=== PATIENT | female | born 1965 | race Caucasian/White ===

== ENCOUNTER → 2017-11-20 | Outpatient (CLI) | payer OTHER ==
[~2017-11-20] MED LIST: ACET300T3 PO; ALBUAER2 INH; IBUP-1050 PO; IBUP600T44 PO
--- NOTE | 2017-11-23 07:43 | MAMMOGRAPHY REPORT ---
BILATERAL DIGITAL SCREENING MAMMOGRAM TOMOSYNTHESIS WITH CAD: 11/20/2017 CLINICAL HISTORY: Routine screening. TECHNIQUE: Breast tomosynthesis in addition to standard 2D mammography was performed. Current study was also evaluated with a Computer Aided Detection (CAD) system. COMPARISON: Comparison is made to exam dated: 01/21/2007. BREAST COMPOSITION: The tissue of both breasts is heterogeneously dense, which may obscure small mas ses. FINDINGS: There are possible grouped calcifications within the left upper outer quadrant, and possibl e grouped calcifications in the right posterior breast centrally, for which spot magnification views are recommended for further evaluation. The remainder of both breasts are stable compared to prior exams, without suspicious masses, calcific ations, or areas of architectural distortion noted. IMPRESSION: ACR BI-RADS CATEGORY 0: INCOMPLETE EVALUATION: NEED ADDITIONAL IMAGING EVALUATION Bilateral calcifications, for which additional imaging evaluation is recommended. The patient will b e called to schedule an appointment. Approximately 10% of breast cancers are not detected with mammography. A negative mammographic report should not delay biopsy if a clinically suggestive mass is present. Sandra Sotomayor M.D. ah/:11/20/2017 15:55:01 Stencil Machine Operator: Kamari KRAUSE(Ambar)(M), [facility] letter sent: Addl Imaging 0 BI-RADS Code: ACR BI-RADS Category 0: Incomplete Evaluation: Need Additional Imaging Evaluation
== END | disposition home or self-care (01) ==
LOC: C.MAMM 08:29
PROVIDERS: ATTEND Obstetrics & Gynecology
DX: Z12.31 Encounter for screening mammogram for malignant neoplasm of breast (principal); R92.1 Mammographic calcification found on diagnostic imaging of breast

== ENCOUNTER 2021-05-02 21:08 | Observation (INO) ==
--- NOTE | 2021-05-03 00:32 | Emergency Department Note ---
History of Present Illness General Chief complaint: Abdominal Pain Stated complaint: ABDOMINAL PAIN UNDER RIBS, CHILLS, DIZZY Time Seen by Provider: 05/03/21 00:17 Source: patient Mode of arrival: ambulatory Limitations: no limitations History of Present Illness Provider complaint: abdominal pain Onset (ago): hour(s) Maximum Pain Intensity: 7 Relieved By: + none Exacerbated By: + eating Associated symptoms: + nausea/vomiting; no fever/chills Treatments prior to arrival: none This is a 55-year-old female presents emergency department with complaints of abdominal pain. Patient states last evening she developed substernal chest pain that she describes as a burning and ache, however this resolved spontaneously and she was able to go to sleep. She states she woke up this morning feeling in her usual state of health, ate breakfast without difficulty and went to work. She states she ate snacks throughout the day and then came home at 230 and had a heavier meal before going to her second job. She states about an hour into being at her job she developed upper abdominal pain central and bilaterally with mild radiation into the flank. She developed some slight nausea and eventually did vomit. Patient states this all began around 4 PM and lasted until 10:30 PM while she was seated in the waiting room. She states she did have an episode of diarrhea here. No blood in the emesis or stools. No recent change in medications or diet. Patient states she is active. She denies fevers, chills, URI symptoms. By the time of my evaluation when patient was placed on the room after waiting in the waiting room for several hours, patient symptoms had resolved. Pt seen during a time of high acuity and national emergency pandemic while wearing PPE. Home Medications Medication Instructions Recorded Confirmed Type acetaminophen 500 mg tablet 500 - 1,000 mg PO Q6H PRN 05/28/18 05/03/21 History (Acetaminophen Extra Strength) albuterol sulfate 90 mcg/actuation 2 puff INHALATION Q6H PRN 05/28/18 05/03/21 History aerosol inhaler (Ventolin HFA) levothyroxine 50 mcg tablet 50 mcg PO DAILY 05/03/21 05/03/21 History Allergies Allergy/AdvReac Type Severity Reaction Status Date / Time Sulfa (Sulfonamide Allergy Severe Anaphylaxis Verified 05/03/21 00:34 Antibiotics) amoxicillin Allergy Unknown "CAN'T Verified 05/03/21 00:34 REMEMBER" oxycodone AdvReac Intermediate NAUSEA,DIZZINESS,EYES Verified 05/03/21 00:34 TWITCHING corn AdvReac Mild DIARRHEA Verified 05/03/21 00:34 lactose AdvReac Mild Gastrointestinal Verified 05/03/21 00:34 Upset Past Med/Surg History Medical History (Updated 05/03/21 @ 08:43 by Salazar Brooks MD) Asthma exercise induced---inhaler prn 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 Hyperlipidemia diet controlled Hypothyroidism IBS (irritable bowel syndrome) Nausea and vomiting after administration of anesthetic agent Obesity Osteoarthritis Surgical History History of detached retina repair left History of lumbar discectomy x3 History of nasal septoplasty History of oral surgery hemangioma removed tongue History of partial hysterectomy History of tooth extraction wisdom teeth Status post cervical spinal fusion x2 Family History Mother Family history of reaction to anesthesia nausea/vomiting Brother Family history of diabetes mellitus twin Family hx colonic polyps 2 Family/Other Family history of diabetes mellitus maternal uncle, maternal cousin Social History Smoking Status: Never smoker Second Hand Exposure: No; Hx Alcohol Use: No Hx Substance Use: No Preferred Language: Occitan Communication Ability: Effective Rope Rider Required: No Beliefs That Will Affect Care: None Current Living Situation: Alone Feels Safe at Home: Yes Assistive Devices: Glasses Review of Systems A total of 10 systems reviewed and were otherwise negative All systems reviewed & are unremarkable except as noted in HPI & below Physical Exam Vital Signs Vital Signs - 24 hr 05/02/21 21:18 05/03/21 07:03 05/03/21 08:57 Temperature 36.2 C L Temperature Source Temporal Artery Scan Pulse Rate 83 Pulse Rate [Finger] 62 66 Pulse Rhythm Regular Pulse Strength Normal Respiratory Rate 18 16 17 Respiratory Effort / Characteristics Non-Labored Spontaneous Respiratory Depth Normal Respiratory Pattern Regular Blood Pressure 159/91 H Blood Pressure [Right Arm] 125/68 141/82 H Blood Pressure Mean 113 Blood Pressure Mean [Right Arm] 87 101 Blood Pressure Position Sitting Pulse Oximetry 95 98 99 Oxygen Delivery Method Room Air Room Air Room Air Sepsis Recent Fever Within 48 Hours No Sepsis New/Unexplained Change in Mental Status N/A Sepsis Action Taken by Nursing No Action Required GENERAL: alert, well appearing, well nourished, no distress, non-toxic EYE EXAM: normal conjunctiva, PERRL and EOM's grossly intact OROPHARYNX: no exudate, no erythema, lips, buccal mucosa, and tongue normal and mucous membranes are moist NECK: supple, no nuchal rigidity, no adenopathy, non-tender LUNGS: Clear to auscultation. Normal chest wall mechanics, no w/r/r HEART: no murmurs, S1 normal and S2 normal ABDOMEN: abdomen soft, non-tender, normo-active bowel sounds, no masses, no rebound or guarding. BACK: Back is symmetrical on inspection and there is no deformity, no midline tenderness, no CVA tenderness. SKIN: no rashes and no bruising UPPER EXTREMITIES: upper extremities are grossly normal. FROM, nml pulses b/l. LOWER EXTREMITIES: No pitting edema. FROM, nml pulses b/l. NEURO EXAM: Normal sensorium, cranial nerves II-XII grossly intact, normal speech, no gross weakness of arms, no gross weakness of legs. Gross sensation intact. Course Course 0325: Patient updated on CT findings. Will add ultrasound. 0526: Patient updated ultrasound results. Will contact general surgery. 0540: General surgery were admit. Covid swab added. Administered Medications Sodium Chloride (Nss 1000ml) 1,000 mls @ 125 mls/hr IV .Q8H JENNIFER Stop: 06/02/21 05:44 Last Admin: 05/03/21 06:08 Dose: 125 mls/hr Documented by: [id number] Discontinued Medications Ciprofloxacin (Cipro / D5w) 400 mg in 200 mls @ 100 mls/hr IV NOW STA; Protocol Stop: 05/03/21 07:51 Last Infusion: 05/03/21 08:56 Dose: 0 mls/hr Documented by: [id number] Admin: 05/03/21 07:04 Dose: 100 mls/hr Documented by: [id number] Metronidazole (Flagyl) 500 mg in 100 mls @ 100 mls/hr IV NOW STA Stop: 05/03/21 06:51 Last Infusion: 05/03/21 07:07 Dose: 0 mls/hr Documented by: [id number] Admin: 05/03/21 06:03 Dose: 100 mls/hr Documented by: [id number] Ioversol (Optiray 320 100ml) 100 ml IV ONCE ONE Stop: 05/03/21 02:20 Last Admin: 05/03/21 02:20 Dose: 93 ml Documented by: [id number] Medical Decision Making Differential Diagnosis Differential diagnoses includes but is not limited to gastritis, peptic ulcer disease, GERD, gallbladder disease, pancreatitis, small bowel obstruction, acute coronary syndrome, pericarditis, ischemic bowel, irritable bowel disease, irritable bowel syndrome, appendicitis, diverticulitis, malignancy, hernia, urinary tract infection, torsion, [/ectopic (if female)], perforation, trauma, infectious. Medical Records Attestation: I reviewed the patient's medical records. Home Medications Current Medication List: was personally reviewed by me Laboratory Data Attestation: I reviewed the patient's lab results. Result diagrams: 05/02/21 01:05 05/03/21 01:05 Lab Results 05/02/21 05/03/21 05/03/21 Range/Units 01:05 01:05 01:25 WBC 7.99 (4.8-10.8) K/uL RBC 4.60 (4.2-5.4) M/uL Hgb 13.8 (12.0-16.0) g/dL Hct 38.9 (37-47) % MCV 84.6 (80-100) fL MCH 30.0 (25-34) pg MCHC 35.5 (32-36) g/dL RDW Std Deviation 37.6 (36.4-46.3) fL RDW Coeff of Kaye 12.3 (11.5-14.5) % Plt Count 289 (130-400) K/uL MPV 10.4 (7.4-10.4) fL Immature Gran % (Auto) 0.1 % Neut % (Auto) 76.2 % Lymph % (Auto) 16.0 % [place] % (Auto) 6.8 % Eos % (Auto) 0.8 % Baso % (Auto) 0.1 % Neut # (Auto) 6.09 (1.4-6.5) K/uL Lymph # (Auto) 1.28 (1.2-3.4) K/uL [place] # (Auto) 0.54 (0.11-0.59) K/uL Eos # (Auto) 0.06 (0-0.5) K/uL Baso # (Auto) 0.01 (0-0.2) K/uL Immature Gran # (Auto) 0.01 (0.00-0.02) K/uL Sodium 136 (136-145) mmol/L Potassium 3.9 (3.5-5.1) mmol/L Chloride 105 (98-107) mmol/L Carbon Dioxide 26 (21-32) mmol/L Anion Gap 5.0 (3-11) BUN 12 (7-18) mg/dl Creatinine 0.69 (0.6-1.2) mg/dl Est Cr Clr Drug Dosing 107.1 ml/min Est GFR ( Amer) 114.4 ml/min Est GFR (Non-Af Amer) 98.7 ml/min BUN/Creatinine Ratio 17.0 (10-20) Glucose 126 H (70-99) mg/dl Calcium 9.5 (8.5-10.1) mg/dl Total Bilirubin 0.7 (0.2-1) mg/dl AST 32 (15-37) U/L ALT 61 (12-78) U/L Alkaline Phosphatase 84 (45-117) U/L Total Protein 7.9 (6.4-8.2) gm/dl Albumin 4.3 (3.4-5.0) gm/dl Globulin 3.6 (2.5-4.0) gm/dl Albumin/Globulin Ratio 1.2 (0.9-2) Lipase 97 (73-393) U/L TSH 0.183 L (0.300-4.500) uIu/ml Free T4 1.30 (0.8-1.6) ng/dl Urine Color Yellow Urine Appearance Clear (Clear) Urine pH 6.5 (4.5-7.5) Ur Specific [place] 1.009 (1.000-1.030) Urine Protein Negative (Negative) Urine Glucose (UA) Negative (Negative) Urine Ketones Negative (Negative) Urine Blood Negative (Negative) Urine Nitrite Negative (Negative) Urine Bilirubin Negative (Negative) Urine Urobilinogen Negative (Negative) Ur Leukocyte Esterase Negative (Negative) COVID-19 Eval Order SARS-CoV-2 (PCR) (Negative) 10/22/21 10/22/21 Range/Units 05:50 05:50 WBC (4.8-10.8) K/uL RBC (4.2-5.4) M/uL Hgb (12.0-16.0) g/dL Hct (37-47) % MCV (80-100) fL MCH (25-34) pg MCHC (32-36) g/dL RDW Std Deviation (36.4-46.3) fL RDW Coeff of Kaye (11.5-14.5) % Plt Count (130-400) K/uL MPV (7.4-10.4) fL Immature Gran % (Auto) % Neut % (Auto) % Lymph % (Auto) % [place] % (Auto) % Eos % (Auto) % Baso % (Auto) % Neut # (Auto) (1.4-6.5) K/uL Lymph # (Auto) (1.2-3.4) K/uL [place] # (Auto) (0.11-0.59) K/uL Eos # (Auto) (0-0.5) K/uL Baso # (Auto) (0-0.2) K/uL Immature Gran # (Auto) (0.00-0.02) K/uL Sodium (136-145) mmol/L Potassium (3.5-5.1) mmol/L Chloride (98-107) mmol/L Carbon Dioxide (21-32) mmol/L Anion Gap (3-11) BUN (7-18) mg/dl Creatinine (0.6-1.2) mg/dl Est Cr Clr Drug Dosing ml/min Est GFR ( Amer) ml/min Est GFR (Non-Af Amer) ml/min BUN/Creatinine Ratio (10-20) Glucose (70-99) mg/dl Calcium (8.5-10.1) mg/dl Total Bilirubin (0.2-1) mg/dl AST (15-37) U/L ALT (12-78) U/L Alkaline Phosphatase (45-117) U/L Total Protein (6.4-8.2) gm/dl Albumin (3.4-5.0) gm/dl Globulin (2.5-4.0) gm/dl Albumin/Globulin Ratio (0.9-2) Lipase (73-393) U/L TSH (0.300-4.500) uIu/ml Free T4 (0.8-1.6) ng/dl Urine Color Urine Appearance (Clear) Urine pH (4.5-7.5) Ur Specific [place] (1.000-1.030) Urine Protein (Negative) Urine Glucose (UA) (Negative) Urine Ketones (Negative) Urine Blood (Negative) Urine Nitrite (Negative) Urine Bilirubin (Negative) Urine Urobilinogen (Negative) Ur Leukocyte Esterase (Negative) COVID-19 Eval Order Covid19 at [facility] SARS-CoV-2 (PCR) NEGATIVE (Negative) Imaging Data Radiologist's Impression: Abdomen/Pelvis CT 05/03/21 00:56 CT OF THE ABDOMEN AND PELVIS WITH CONTRAST CLINICAL HISTORY: Abdominal pain. COMPARISON STUDY: None. TECHNIQUE: Following IV administration of 93 mL of Optiray, axial images of the abdomen and pelvis were obtained from the lung bases to the proximal femurs. Images were reviewed in the axial, sagittal, and coronal planes. IV contrast was administered without complication. Automated exposure control was utilized for the study. A dose lowering technique was utilized adhering to the principles of ALARA. CT DOSE: 553.78 mGy.cm FINDINGS: Note is made of a 6 mm solid noncalcified right lower lobe pulmonary nodule on image 16 of 466. No pneumatosis, free air or portal venous gas is present. No hepatic lesions are present. Hepatic steatosis. Note is made of gallbladder wall thickening. Layering material within the gallbladder is noted. These likely reflect gallstones. The spleen, adrenal glands, kidneys and pancreas are unremarkable. There is no biliary or pancreatic ductal dilatation. No evidence for a bowel obstruction. There is no ascites. No lymphadenopathy is present. Major vasculature is patent. No acute fracture or suspicious lesion is identified within the visualized skeletal structures. The caliber and wall thickness of small and large bowel are normal. The appendix is normal. IMPRESSION: 1. Cholelithiasis and gallbladder wall thickening. These findings may reflect acute cholecystitis. 2. Hepatic steatosis. 3. 6 mm right lower lobe nodule. Correlation with prior imaging studies, if available, is recommended. In the absence of prior studies, a follow-up chest CT in 6 months to ensure stability is recommended. ACT 112: Negative or not required by law. Electronically signed by: Herrera Guallpa M.D. 05/03/2021 6:34 AM Abdomen Ultrasound 05/03/21 03:38 ABDOMINAL ULTRASOUND, RIGHT UPPER QUADRANT HISTORY: Abdominal pain and vomiting. Abnormal gallbladder on CT. COMPARISON: CT of the abdomen and pelvis performed earlier today. FINDINGS: Hepatic echogenicity is increased consistent with hepatic steatosis. No hepatic lesions are identified. Fatty sparing within the gallbladder fossa is noted. Numerous gallstones within the gallbladder noted. There is gallbladder wall thickening. The wall measures 5 mm in thickness. Gallbladder wall edema is noted. Positive sonographic Baugh sign was elicited. There is no biliary ductal dilatation. The common bile measures 5 mm in caliber. Pancreatic body is normal. Head and tail are partially obscured. There is no right hydronephrosis. IMPRESSION: 1. Cholelithiasis, gallbladder wall thickening and positive sonographic Baugh sign. These findings suggest acute cholecystitis. 2. No biliary ductal dilatation. 3. Hepatic steatosis. ACT 112: Negative or not required by law. Electronically signed by: Herrera Guallpa M.D. 05/03/2021 6:52 AM Chest X-Ray 05/03/21 05:52 SINGLE VIEW CHEST CLINICAL HISTORY: Preoperative examination. Acute cholecystitis. FINDINGS: 2 AP, portable, upright chest radiographs are obtained. No prior studies are available for comparison at the time of dictation. The cardiomediastinal silhouette is unremarkable. The lungs and pleural spaces are clear. No pneumothorax is seen. The bony thorax is grossly intact. Fusion hardware is noted in the lower cervical spine. IMPRESSION: No active disease in the chest. ACT 112: Negative or not required by law. Electronically signed by: Yimi Wills M.D. 05/03/2021 9:[address] abdomen and pelvis with contrast: Apparent gallbladder wall thickening with cholelithiasis. Consider right upper quadrant ultrasound for further evaluation. Hepatic steatosis. 6 mm solid right lower lobe nodule. Fleischner Society guidelines for low risk patients recommend follow-up chest CT at 6 to 12 months. If unchanged consider an additional follow-up CT at 18 to 24 months. For high risk patients (smoking history or other known risk factors) initial follow-up chest CT at 6 to 12 months and if unchanged, 18 to 24 months. Additionally, given patient's reported oncologic history, follow-up imaging could be performed at the time interval recommended with pertinent oncologic guidelines. Normal appendix. No free air or free fluid. No hydronephrosis. Radiologist: Venkatesh Sutherland MD Ultrasound right upper quadrant: Comparison to CT abdomen pelvis from May 03, 2021. There is fatty infiltration of the liver. No focal liver lesion is seen for the liver is within normal limits in size measuring 15.7 cm. The portal vein is patent with normal direction of flow. There are multiple shadowing gallstones within a distended gallbladder. There is gallbladder wall thickening measuring 3 to 5 mm and a small amount of pericholecystic fluid suggesting acute cholecystitis. The common bile duct is nondilated measuring 3 to 4 mm. Radiologist: Feng Denson MD ECG Data Attestation: I personally reviewed and interpreted this ECG as follows: Indication: + abdominal pain Rate (beats per minute): 63 Rhythm: + normal sinus ECG Intervals/blocks: + Normal QRS and + Normal QT ECG [place]: + Normal ECG ST segments: + Normal ST segments MDM Narrative This is a 55-year-old female who presents due to concern for abdominal pain that lasted approximately 6 to 7 hours by the time she presented here and symptoms began to resolve. Patient did have vomiting, no fevers. Labs drawn and sent and were reassuring. After significant time at bedside discussing with the patient her past medical history and family history as well as the evolution and location of her symptoms, we opted to start with a CAT scan of the abdomen and pelvis. This did reveal concern for possible biliary disease, and so a right upper quadrant ultrasound was added. Ultrasound findings highly suggestive of acute cholecystitis. In light of this despite reassuring labs and patient being afebrile, general surgery was contacted. They will admit the patient with plan for cholecystectomy later today. Patient kept aware of all results and was in agreement with plan. No evidence of choledocholithiasis or ascending cholangitis. No evidence for pancreatitis. An order was placed for continuous cardiac monitoring. The monitor shows a rate of _70_ with _normal sinus__ rhythm. Impression & Plan Abdominal pain, Acute cholecystitis Discharge Plan Visit Data Chief Complaint: Abdominal Pain Stated Complaint: ABDOMINAL PAIN UNDER RIBS, CHILLS, DIZZY ED Provider: Shelia Zhao Discharge Problem: Abdominal pain, Acute cholecystitis Forms Stand Alone Forms: [employer] Prescriptions Prescriptions: No Action albuterol sulfate [Ventolin HFA] 90 mcg/actuation Hfa Aerosol Inhaler 2 puff INHALATION Q6H PRN (Reason: Shortness Of Breath) RF: 0 acetaminophen [Acetaminophen Extra Strength] 500 mg Tablet 500 - 1,000 mg PO Q6H PRN (Reason: Pain) RF: 0 levothyroxine 50 mcg tablet 50 mcg PO DAILY RF: 0 Referrals Referrals: Rabia Mai CRNP [Primary Care Provider] - Discharge Problem: Abdominal pain Qualifiers: Abdominal location: upper abdomen, unspecified Qualified Code(s): R10.10 - Upper abdominal pain, unspecified
[2021-05-03 01:24] LABS: Basophils # (auto) 0.01 K/uL (0-0.2); Basophils % (auto) 0.1 %; Eosinophils # (auto) 0.06 K/uL (0-0.5); Eosinophils % (auto) 0.8 %; Hematocrit (blood only) 38.9 % (37-47); Hemoglobin 13.8 g/dL (12.0-16.0); Immature Granulocytes # (auto) 0.01 K/uL (0.00-0.02); Immature Granulocytes % (auto) 0.1 %; Lymphocytes # (auto) 1.28 K/uL (1.2-3.4); Mean Corpuscular Hgb Conc 35.5 g/dL (32-36); Mean Corpuscular Volume 84.6 fL (80-100); Mean Platelet Volume 10.4 fL (7.4-10.4); Monocytes # (auto) 0.54 K/uL (0.11-0.59); Monocytes % (auto) 6.8 %; Neutrophils # (auto) 6.09 K/uL (1.4-6.5); Neutrophils % (auto) 76.2 %; Platelet Count 289 K/uL (130-400); RDW Coefficient of Variation 12.3 % (11.5-14.5); RDW Standard Deviation 37.6 fL (36.4-46.3); White Blood Count 7.99 K/uL (4.8-10.8)
[2021-05-03 01:42] LABS: Appearance Urine Clear (Clear); Bilirubin Urine Negative (Negative); Blood Urine Negative (Negative); Color Urine Yellow; Glucose Urine UA Negative (Negative); Ketones Urine Negative (Negative); Leukocyte Esterase Urine Negative (Negative); Nitrite Urine Negative (Negative); Protein Urine Negative (Negative); Specific Gravity Urine 1.009 (1.000-1.030); Urobilinogen Urine Negative (Negative); pH Urine 6.5 (4.5-7.5)
[2021-05-03 01:45] LABS: Albumin Level 4.3 gm/dl (3.4-5.0); Calcium 9.5 mg/dl (8.5-10.1); Creatinine Clr Calc Pharmacy 107.1 ml/min; Est GFR (African American) 114.4 ml/min; Est GFR (Non-African American) 98.7 ml/min; Potassium 3.9 mmol/L (3.5-5.1)
[2021-05-03 01:56] LABS: Albumin Globulin Ratio 1.2 (0.9-2); Bilirubin,Total 0.7 mg/dl (0.2-1); Globulin 3.6 gm/dl (2.5-4.0); Thyroid Stimulating Hormone 0.183 uIu/ml (0.300-4.500); Total Protein 7.9 gm/dl (6.4-8.2)
[2021-05-03 02:08] LABS: T4 Free Thyroxine 1.3 ng/dl (0.8-1.6)
[2021-05-03] MEDS ORDERED: OPTIRAY 320 100ml IV ONE (02:19)
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
[2021-05-03] MEDS ORDERED: metroNIDAZOLE 500 MG/100 ML BAG IV STA (05:52)
[2021-05-03] MEDS ORDERED: CIPROFLOXACIN / D5W 400 MG/200 ML BAG IV STA (05:52)
[2021-05-03] MEDS: SODIUM CHLORIDE 0.9% 1000ML 1,000 ML IV SCH ×2 (06:08→16:42)
--- NOTE | 2021-05-03 06:35 | CT Scan Report ---
CT OF THE ABDOMEN AND PELVIS WITH CONTRAST CLINICAL HISTORY: Abdominal pain. COMPARISON STUDY: None. TECHNIQUE: Following IV administration of 93 mL of Optiray, axial images of the abdomen and pelvis we re obtained from the lung bases to the proximal femurs. Images were reviewed in the axial, sagittal, and coronal planes. IV contrast was administered without complication. Automated exposure control wa s utilized for the study. A dose lowering technique was utilized adhering to the principles of ALARA . CT DOSE: 553.78 mGy.cm FINDINGS: Note is made of a 6 mm solid noncalcified right lower lobe pulmonary nodule on image 16 of 466. No pneumatosis, free air or portal venous gas is present. No hepatic lesions are present. Hepati c steatosis. Note is made of gallbladder wall thickening. Layering material within the gallbladder is noted. These likely reflect gallstones. The spleen, adrenal glands, kidneys and pancreas are unremar kable. There is no biliary or pancreatic ductal dilatation. No evidence for a bowel obstruction. Ther e is no ascites. No lymphadenopathy is present. Major vasculature is patent. No acute fracture or elma picious lesion is identified within the visualized skeletal structures. The caliber and wall thicknes s of small and large bowel are normal. The appendix is normal. IMPRESSION: 1. Cholelithiasis and gallbladder wall thickening. These findings may reflect acute cholecystitis. 2. Hepatic steatosis. 3. 6 mm right lower lobe nodule. Correlation with prior imaging studies, if available, is recommended . In the absence of prior studies, a follow-up chest CT in 6 months to ensure stability is recommende d. ACT 112: Negative or not required by law. Electronically signed by: Herrera Guallpa M.D. 05/03/2021 6:34 AM
--- NOTE | 2021-05-03 06:53 | Ultrasound Report ---
ABDOMINAL ULTRASOUND, RIGHT UPPER QUADRANT HISTORY: Abdominal pain and vomiting. Abnormal gallbladder on CT. COMPARISON: CT of the abdomen and pelvis performed earlier today. FINDINGS: Hepatic echogenicity is increased consistent with hepatic steatosis. No hepatic lesions are identified. Fatty sparing within the gallbladder fossa is noted. Numerous gallstones within the gall bladder noted. There is gallbladder wall thickening. The wall measures 5 mm in thickness. Gallbladder wall edema is noted. Positive sonographic Baugh sign was elicited. There is no biliary ductal dilat ation. The common bile measures 5 mm in caliber. Pancreatic body is normal. Head and tail are partial ly obscured. There is no right hydronephrosis. IMPRESSION: 1. Cholelithiasis, gallbladder wall thickening and positive sonographic Baugh sign. These findings s uggest acute cholecystitis. 2. No biliary ductal dilatation. 3. Hepatic steatosis. ACT 112: Negative or not required by law. Electronically signed by: Herrera Guallpa M.D. 05/03/2021 6:52 AM
--- NOTE | 2021-05-03 09:01 | XRay Report ---
SINGLE VIEW CHEST CLINICAL HISTORY: Preoperative examination. Acute cholecystitis. FINDINGS: 2 AP, portable, upright chest radiographs are obtained. No prior studies are available for comparison at the time of dictation. The cardiomediastinal silhouette is unremarkable. The lungs and pleural spaces are clear. No pneumothorax is seen. The bony thorax is grossly intact. Fusion hardwar e is noted in the lower cervical spine. IMPRESSION: No active disease in the chest. ACT 112: Negative or not required by law. Electronically signed by: Yimi Wills M.D. 05/03/2021 9:00 AM
[2021-05-03] MEDS ORDERED: DEXTROSE 50% 50 ML SYRINGE IV PRN (10:37)
[2021-05-03] MEDS ORDERED: GLUCAGON FOR INJ 1 MG VIAL SQ PRN (10:37)
[2021-05-03] MEDS ORDERED: GLUCOSE 40% GEL 15 GM TUBE PO PRN (10:37)
[2021-05-03] MEDS ORDERED: GLUCOSE 10 TABS/TUBE PO PRN (10:37)
[2021-05-03] MEDS ORDERED: CARBOHYDRATES FOR HYPOGLYCEMIA PO PRN (10:37)
--- NOTE | 2021-05-03 10:43 | Hospitalist Consultation ---
Date of Consultation May 03, 2021 Assessment & Plan (1) Acute cholecystitis: With findings of acute cholecystitis on right upper quadrant ultrasound CT abdomen/pelvis went for laparoscopic cholecystectomy today Received 1 dose of Cipro and Flagyl Continue IV fluids now faina reg diet after surgery Surgical management as per surgery- stable for dc to home ibuprofen and tylenol prn and avoid opioids nad trmadaol as cause nausea (2) Hypoglycemia: glucose check normal after surgery, no hypoglycemia TSH a little bit low but free T4 normal Does take adrenal complex as an outpatient which tends to be natural adrenal gland tissue-probably has created some adrenal insufficiency no need for stress steroids Currently blood pressures are normal (3) Obesity: BMI 30.9 Needs weight loss as an outpatient (4) Hypothyroidism: TSH mildly low, free T4 normal Continue home levothyroxine (5) IBS (irritable bowel syndrome): No acute inpatient issues (6) Asthma: No acute issues, pulse ox is 1 her percent on room air (7) Hyperlipidemia: Is diet controlled as an outpatient Dispo-medically stable for dc to home History of Present Illness Reason for Consultation: Medical management, h/o hypoglycemia Requesting Physician: Dr. Tony Attending Physician: Felice Tony MD, [facility] History of Present Illness This patient is a 55-year-old female with a history of hypothyroidism, exercise- induced asthma, hyperlipidemia that is diet controlled, IBS, and osteoarthritis who presents to the ER with right upper quadrant pain that was acute in nature. She was found to have acute cholecystitis and has been taken to the operating room today for an urgent laparoscopic cholecystectomy. She received IV Cipro and Flagyl and IV fluids in the ER. I was consulted for medical management as the patient complains of a history of hypoglycemia in the past. I do see that she takes "adrenal complex" as an outpatient and perhaps has some degree of adrenal insufficiency. Her blood glucose on arrival was 126, but laboratory work-up was fairly unremarkable otherwise. I saw her post-op and she was doing fairly well. She had a lot of nausea after having tramadol which was then resolved with promethazine. Pain is down to a 1/10 now and she ambulated, ate regular dinner and is going to be discharged to home this evening. Allergies Allergy/AdvReac Type Severity Reaction Status Date / Time Sulfa (Sulfonamide Allergy Severe Anaphylaxis Verified 05/03/21 00:34 Antibiotics) amoxicillin Allergy Unknown "CAN'T Verified 05/03/21 00:34 REMEMBER" oxycodone AdvReac Intermediate NAUSEA,DIZZINESS,EYES Verified 05/03/21 00:34 TWITCHING tramadol AdvReac Intermediate Nausea Verified 05/03/21 18:39 corn AdvReac Mild DIARRHEA Verified 05/03/21 00:34 lactose AdvReac Mild Gastrointestinal Verified 05/03/21 00:34 Upset Home Medications Medication Instructions Recorded Confirmed Type acetaminophen 500 mg tablet 500 - 1,000 mg PO Q6H PRN 05/28/18 05/03/21 History (Acetaminophen Extra Strength) albuterol sulfate 90 mcg/actuation 2 puff INHALATION Q6H PRN 05/28/18 05/03/21 History aerosol inhaler (Ventolin HFA) levothyroxine 50 mcg tablet 50 mcg PO DAILY 05/03/21 05/03/21 History ondansetron HCl 4 mg tablet 4 mg PO Q6H PRN #10 tab 05/03/21 Rx (Zofran) tramadol 50 mg tablet 50 - 100 mg PO Q6H #30 tab 05/03/21 Rx Patient History Medical History Asthma exercise induced---inhaler prn 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 Hyperlipidemia diet controlled Hypothyroidism IBS (irritable bowel syndrome) Nausea and vomiting after administration of anesthetic agent Obesity Osteoarthritis Surgical History History of detached retina repair left History of lumbar discectomy x3 History of nasal septoplasty History of oral surgery hemangioma removed tongue History of partial hysterectomy History of tooth extraction wisdom teeth Status post cervical spinal fusion x2 Family History Mother Family history of reaction to anesthesia nausea/vomiting Brother Family history of diabetes mellitus twin Family hx colonic polyps 2 Family/Other Family history of diabetes mellitus maternal uncle, maternal cousin Social History Smoking Status: Never smoker Second Hand Exposure: No; Hx Alcohol Use: Yes Alcohol type: beer Hx Substance Use: No Preferred Language: Algerian Communication Ability: Effective 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 Beliefs That Will Affect Care: None Current Living Situation: Alone Feels Safe at Home: Yes Safety Concerns: Feels Safe At This Time Assistive Devices: None Review of Systems Review of Systems: All systems reviewed & are unremarkable except as noted in HPI & below Physical Exam Constitutional: WD/WN, vitals as above Eyes: + anicteric sclerae Neck: trachea midline, no thyromegaly Respiratory: normal respiratory effort, lungs clear to auscultation Cardiovascular: RRR, no murmur, no edema Chest (Breasts): Chest: normal inspection of chest Gastrointestinal (Abdomen): Inspection/Auscultation: + abdomen abnormal to inspection (multiple lap incisions with dermabond, no tenderness or erythema) Musculoskeletal: Extremities: extremities normal to inspection; no cyanosis and no clubbing Skin: no rashes, warm and dry Neurologic: moves all extremities and awake; no focal motor deficits Psychiatric: A+Ox3, euthymic affect Lymphatic: no lymphedema Results & Data Results & Data ([facility]) Vital Signs (Past 12 Hours) Vital Signs Pulse Resp BP Pulse Ox 05/03/21 10:17 68 17 135/74 100 05/03/21 08:57 66 17 141/82 H 99 05/03/21 07:03 62 16 125/68 98 Laboratory Results 05/03/21 05/03/21 05/03/21 Range/Units 05:50 05:50 01:25 WBC (4.8-10.8) K/uL RBC (4.2-5.4) M/uL Hgb (12.0-16.0) g/dL Hct (37-47) % MCV (80-100) fL MCH (25-34) pg MCHC (32-36) g/dL RDW Std Deviation (36.4-46.3) fL RDW Coeff of Kaye (11.5-14.5) % Plt Count (130-400) K/uL MPV (7.4-10.4) fL Immature Gran % (Auto) % Neut % (Auto) % Lymph % (Auto) % Mcdonald % (Auto) % Eos % (Auto) % Baso % (Auto) % Neut # (Auto) (1.4-6.5) K/uL Lymph # (Auto) (1.2-3.4) K/uL Mcdonald # (Auto) (0.11-0.59) K/uL Eos # (Auto) (0-0.5) K/uL Baso # (Auto) (0-0.2) K/uL Immature Gran # (Auto) (0.00-0.02) K/uL Sodium (136-145) mmol/L Potassium (3.5-5.1) mmol/L Chloride (98-107) mmol/L Carbon Dioxide (21-32) mmol/L Anion Gap (3-11) BUN (7-18) mg/dl Creatinine (0.6-1.2) mg/dl Est Cr Clr Drug Dosing ml/min Est GFR ( Amer) ml/min Est GFR (Non-Af Amer) ml/min BUN/Creatinine Ratio (10-20) Glucose (70-99) mg/dl Calcium (8.5-10.1) mg/dl Total Bilirubin (0.2-1) mg/dl AST (15-37) U/L ALT (12-78) U/L Alkaline Phosphatase (45-117) U/L Total Protein (6.4-8.2) gm/dl Albumin (3.4-5.0) gm/dl Globulin (2.5-4.0) gm/dl Albumin/Globulin Ratio (0.9-2) Lipase (73-393) U/L TSH (0.300-4.500) uIu/ml Free T4 (0.8-1.6) ng/dl Urine Color Yellow Urine Appearance Clear (Clear) Urine pH 6.5 (4.5-7.5) Ur Specific [place] 1.009 (1.000-1.030) Urine Protein Negative (Negative) Urine Glucose (UA) Negative (Negative) Urine Ketones Negative (Negative) Urine Blood Negative (Negative) Urine Nitrite Negative (Negative) Urine Bilirubin Negative (Negative) Urine Urobilinogen Negative (Negative) Ur Leukocyte Esterase Negative (Negative) COVID-19 Eval Order Covid19 at [facility] SARS-CoV-2 (PCR) NEGATIVE (Negative) 05/03/21 05/02/21 Range/Units 01:05 01:05 WBC 7.99 (4.8-10.8) K/uL RBC 4.60 (4.2-5.4) M/uL Hgb 13.8 (12.0-16.0) g/dL Hct 38.9 (37-47) % MCV 84.6 (80-100) fL MCH 30.0 (25-34) pg MCHC 35.5 (32-36) g/dL RDW Std Deviation 37.6 (36.4-46.3) fL RDW Coeff of Kaye 12.3 (11.5-14.5) % Plt Count 289 (130-400) K/uL MPV 10.4 (7.4-10.4) fL Immature Gran % (Auto) 0.1 % Neut % (Auto) 76.2 % Lymph % (Auto) 16.0 % Mcdonald % (Auto) 6.8 % Eos % (Auto) 0.8 % Baso % (Auto) 0.1 % Neut # (Auto) 6.09 (1.4-6.5) K/uL Lymph # (Auto) 1.28 (1.2-3.4) K/uL Mcdonald # (Auto) 0.54 (0.11-0.59) K/uL Eos # (Auto) 0.06 (0-0.5) K/uL Baso # (Auto) 0.01 (0-0.2) K/uL Immature Gran # (Auto) 0.01 (0.00-0.02) K/uL Sodium 136 (136-145) mmol/L Potassium 3.9 (3.5-5.1) mmol/L Chloride 105 (98-107) mmol/L Carbon Dioxide 26 (21-32) mmol/L Anion Gap 5.0 (3-11) BUN 12 (7-18) mg/dl Creatinine 0.69 (0.6-1.2) mg/dl Est Cr Clr Drug Dosing 107.1 ml/min Est GFR ( Amer) 114.4 ml/min Est GFR (Non-Af Amer) 98.7 ml/min BUN/Creatinine Ratio 17.0 (10-20) Glucose 126 H (70-99) mg/dl Calcium 9.5 (8.5-10.1) mg/dl Total Bilirubin 0.7 (0.2-1) mg/dl AST 32 (15-37) U/L ALT 61 (12-78) U/L Alkaline Phosphatase 84 (45-117) U/L Total Protein 7.9 (6.4-8.2) gm/dl Albumin 4.3 (3.4-5.0) gm/dl Globulin 3.6 (2.5-4.0) gm/dl Albumin/Globulin Ratio 1.2 (0.9-2) Lipase 97 (73-393) U/L TSH 0.183 L (0.300-4.500) uIu/ml Free T4 1.30 (0.8-1.6) ng/dl Urine Color Urine Appearance (Clear) Urine pH (4.5-7.5) Ur Specific [place] (1.000-1.030) Urine Protein (Negative) Urine Glucose (UA) (Negative) Urine Ketones (Negative) Urine Blood (Negative) Urine Nitrite (Negative) Urine Bilirubin (Negative) Urine Urobilinogen (Negative) Ur Leukocyte Esterase (Negative) COVID-19 Eval Order SARS-CoV-2 (PCR) (Negative) Diagnostic Findings Abdomen/Pelvis CT 05/03/21 00:56 CT OF THE ABDOMEN AND PELVIS WITH CONTRAST CLINICAL HISTORY: Abdominal pain. COMPARISON STUDY: None. TECHNIQUE: Following IV administration of 93 mL of Optiray, axial images of the abdomen and pelvis were obtained from the lung bases to the proximal femurs. Images were reviewed in the axial, sagittal, and coronal planes. IV contrast was administered without complication. Automated exposure control was utilized for the study. A dose lowering technique was utilized adhering to the principles of ALARA. CT DOSE: 553.78 mGy.cm FINDINGS: Note is made of a 6 mm solid noncalcified right lower lobe pulmonary nodule on image 16 of 466. No pneumatosis, free air or portal venous gas is present. No hepatic lesions are present. Hepatic steatosis. Note is made of gallbladder wall thickening. Layering material within the gallbladder is noted. These likely reflect gallstones. The spleen, adrenal glands, kidneys and pancreas are unremarkable. There is no biliary or pancreatic ductal dilatation. No evidence for a bowel obstruction. There is no ascites. No lymphadenopathy is present. Major vasculature is patent. No acute fracture or suspicious lesion is identified within the visualized skeletal structures. The caliber and wall thickness of small and large bowel are normal. The appendix is normal. IMPRESSION: 1. Cholelithiasis and gallbladder wall thickening. These findings may reflect acute cholecystitis. 2. Hepatic steatosis. 3. 6 mm right lower lobe nodule. Correlation with prior imaging studies, if available, is recommended. In the absence of prior studies, a follow-up chest CT in 6 months to ensure stability is recommended. ACT 112: Negative or not required by law. Electronically signed by: Herrera Guallpa M.D. 05/03/2021 6:34 AM Abdomen Ultrasound 05/03/21 03:38 ABDOMINAL ULTRASOUND, RIGHT UPPER QUADRANT HISTORY: Abdominal pain and vomiting. Abnormal gallbladder on CT. COMPARISON: CT of the abdomen and pelvis performed earlier today. FINDINGS: Hepatic echogenicity is increased consistent with hepatic steatosis. No hepatic lesions are identified. Fatty sparing within the gallbladder fossa is noted. Numerous gallstones within the gallbladder noted. There is gallbladder wall thickening. The wall measures 5 mm in thickness. Gallbladder wall edema is noted. Positive sonographic Baugh sign was elicited. There is no biliary ductal dilatation. The common bile measures 5 mm in caliber. Pancreatic body is normal. Head and tail are partially obscured. There is no right hydronephrosis. IMPRESSION: 1. Cholelithiasis, gallbladder wall thickening and positive sonographic Baugh sign. These findings suggest acute cholecystitis. 2. No biliary ductal dilatation. 3. Hepatic steatosis. ACT 112: Negative or not required by law. Electronically signed by: Herrera Guallpa M.D. 05/03/2021 6:52 AM Chest X-Ray 05/03/21 05:52 SINGLE VIEW CHEST CLINICAL HISTORY: Preoperative examination. Acute cholecystitis. FINDINGS: 2 AP, portable, upright chest radiographs are obtained. No prior studies are available for comparison at the time of dictation. The cardiomediastinal silhouette is unremarkable. The lungs and pleural spaces are clear. No pneumothorax is seen. The bony thorax is grossly intact. Fusion hardware is noted in the lower cervical spine. IMPRESSION: No active disease in the chest. ACT 112: Negative or not required by law. Electronically signed by: Yimi Wills M.D. 05/03/2021 9:00 AM PG Care Time/CCT Total # of Minutes Spent Total Time Spent with Patient: Total time spent is greater than 50% in coordination of care (as documented) at patient's floor/unit and/or counseling patient: Coding Level of Care Code 86330 Inpt Consult Level 2 Diagnoses Obesity E66.9 Acute cholecystitis K81.0 Hypothyroidism E03.9 IBS (irritable bowel syndrome) K58.9 Asthma J45.909 Hyperlipidemia E78.5 Hypoglycemia E16.2
[2021-05-03] MEDS ORDERED: ACETAMINOPHEN 1000 MG/100 ML IV IV ONE (10:50)
[2021-05-03] MEDS ORDERED: PROPOFOL IV EMULSION 10 MG/ML 100 ML VIAL IV ONE (10:50)
[2021-05-03] MEDS ORDERED: ONDANSETRON INJ 2 MG/ML 2 ML VIAL ONE (10:51)
[2021-05-03] MEDS ORDERED: fentaNYL citrate 100 MCG/2 ML VIAL ONE ×3 (10:51→12:34)
[2021-05-03] MEDS ORDERED: LIDOCAINE 2% 2 ML VIAL/AMP(20MG/ML) INFIL ONE (10:51)
[2021-05-03] MEDS ORDERED: LARYING-O-JET KIT (LTA) ONE (10:51)
[2021-05-03] MEDS ORDERED: DEXAMETHASONE SOD INJ 4 MG/ML VIAL ONE (10:51)
[2021-05-03] MEDS ORDERED: PROPOFOL IV EMULSION 10 MG/ML 20 ML VIAL IV ONE (10:51)
[2021-05-03] MEDS ORDERED: MIDAZOLAM HCL 1 MG/ML 2ML VIAL ONE (10:51)
--- NOTE | 2021-05-03 10:57 | Electrocardiogram Report ---
Test Reason : Blood Pressure : / mmHG Vent. Rate : 063 BPM Atrial Rate : 063 BPM P-R Int : 162 ms QRS Dur : 084 ms QT Int : 408 ms P-R-T Axes : 075 058 072 degrees QTc Int : 417 ms Poor data quality, interpretation may be adversely affected Normal sinus rhythm with sinus arrhythmia Normal ECG When compared with ECG of 28-JUL-2011 15:57, No significant change was found Confirmed by Tima Wu ([id number]) on 05/03/2021 10:57:26 AM Referred By: REFERRED SELF Confirmed By:Tima Wu
[2021-05-03] MEDS ORDERED: BUPIVACAINE 0.5 % 5 MG/1 ML MPF 30ML VIAL ONE (11:03)
[2021-05-03] MEDS ORDERED: SCOPOLAMINE 1 MG TDSY TD ONE ×2 (11:04→11:17)
--- NOTE | 2021-05-03 11:21 | Anesthesiology Consultation ---
Date of Service May 03, 2021 Assessment & Plan (1) Encounter for pre-operative examination: Chart Review Chart Review: Acceptable Risk for Surgery and Patient NOT seen in Pre Admission Testing Consults Requested none History Surgery Operation Date: 05/03/21 08:20 Proposed Procedures p Laparoscopic Cholecystectomy - Felice Tony MD, FACS Height/Weight Height: 5 ft 7 in Weight: 89.5 kg Allergies Allergy/AdvReac Type Severity Reaction Status Date / Time Sulfa (Sulfonamide Allergy Severe Anaphylaxis Verified 05/03/21 00:34 Antibiotics) amoxicillin Allergy Unknown "CAN'T Verified 05/03/21 00:34 REMEMBER" oxycodone AdvReac Intermediate NAUSEA,DIZZINESS,EYES Verified 05/03/21 00:34 TWITCHING corn AdvReac Mild DIARRHEA Verified 05/03/21 00:34 lactose AdvReac Mild Gastrointestinal Verified 05/03/21 00:34 Upset Medications Home Medications Medication Instructions Recorded Confirmed Last Taken acetaminophen 500 mg tablet 500 - 1,000 mg PO Q6H PRN 05/28/18 05/03/21 Unknown (Acetaminophen Extra Strength) albuterol sulfate 90 mcg/actuation 2 puff INHALATION Q6H PRN 05/28/18 05/03/21 Unknown aerosol inhaler (Ventolin HFA) levothyroxine 50 mcg tablet 50 mcg PO DAILY 05/03/21 05/03/21 05/02/21 Active Medications Generic Name Dose Route Start Last Admin Trade Name Freq PRN Reason Stop Dose Admin Sodium Chloride 1,000 mls @ 125 mls/hr 05/03/21 05:45 05/03/21 06:08 Nss 1000ml IV 06/02/21 05:44 125 mls/hr .Q8H JENNIFER Administration NPO Date Last Intake of Fluids: 05/02/21 Time Last Intake of Fluids: 15:00 Date Last Intake of Solids: 05/02/21 Time Last Intake of Solids: 08:45 Past Medical History Medical History Asthma exercise induced---inhaler prn 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 Hyperlipidemia diet controlled Hypothyroidism IBS (irritable bowel syndrome) Nausea and vomiting after administration of anesthetic agent Obesity Osteoarthritis Past Family History Family History Mother Family history of reaction to anesthesia nausea/vomiting Brother Family history of diabetes mellitus twin Family hx colonic polyps 2 Family/Other Family history of diabetes mellitus maternal uncle, maternal cousin Past Surgical History Surgical History History of detached retina repair left History of lumbar discectomy x3 History of nasal septoplasty History of oral surgery hemangioma removed tongue History of partial hysterectomy History of tooth extraction wisdom teeth Status post cervical spinal fusion x2 Social History Smoking Status: Never smoker Hx Alcohol Use: No Hx Substance Use: No substance use type: does not use Physical Exam Vital Signs Last Vital Signs Temp 36.4 C L 05/03/21 10:30 Pulse 72 05/03/21 10:30 Resp 18 05/03/21 10:30 BP 145/83 H 05/03/21 10:30 Pulse Ox 100 05/03/21 10:30 Testing Laboratory Results 05/02/21 01:05 05/03/21 01:05 Urine Color Yellow 05/03/21 01:25 Urine Appearance Clear (Clear) 05/03/21 01:25 Urine pH 6.5 (4.5-7.5) 05/03/21 01:25 Ur Specific Cornell 1.009 (1.000-1.030) 05/03/21 01:25 Urine Protein Negative (Negative) 05/03/21 01:25 Urine Glucose (UA) Negative (Negative) 05/03/21 01:25 Urine Ketones Negative (Negative) 05/03/21 01:25 Urine Nitrite Negative (Negative) 05/03/21 01:25 Ur Leukocyte Esterase Negative (Negative) 05/03/21 01:25 Electrocardiogram Date: 05/02/21 NSR with sinus arrhythmia, rate 63 Chest X-Ray Date: 05/03/21 SINGLE VIEW CHEST CLINICAL HISTORY: Preoperative examination. Acute cholecystitis. FINDINGS: 2 AP, portable, upright chest radiographs are obtained. No prior studies are available for comparison at the time of dictation. The cardiomediastinal silhouette is unremarkable. The lungs and pleural spaces are clear. No pneumothorax is seen. The bony thorax is grossly intact. Fusion hardware is noted in the lower cervical spine. IMPRESSION: No active disease in the chest. ACT 112: Negative or not required by law. Electronically signed by: Yimi Wills M.D. 05/03/2021 9:00 AM Dictated: 05/03/21 [id number]: 05/03/21 [id number]
[2021-05-03] MEDS ORDERED: ACETAMINOPHEN 1,000 MG/100 ML VIAL IV ONE (12:25)
--- NOTE | 2021-05-03 12:25 | Post Operative Brief Note ---
PG Immediate Post Op with CF Date of Surgery May 03, 2021 Pre & Post Diagnosis Operation Date: 05/03/21 08:20 Pre-Op Diagnosis: cholecystitis Post-Op Diagnosis: cholecystitis I identified the patient and participated in the time-out.: Yes Procedure Operation Date: 05/03/21 08:20 Actual Procedures p Laparoscopic Cholecystectomy(Not Applicable) - Felice Tony MD, FACS Surgeon Felice Tony MD, FACS Acrobatic Dancer trev manriquez Estimated Blood Loss 10 Findings Consistent with Post-Op Diagnosis Acute cholecystitis Specimens Specimen Description: A. gallbladder
[2021-05-03] MEDS ORDERED: GLYCOPYRROLATE 0.2 MG/ML VIAL ONE (12:26)
[2021-05-03] MEDS ORDERED: NEOSTIGMINE METHYLSULFATE 1 MG/ML 10ML VIAL ONE (12:26)
[2021-05-03] MEDS ORDERED: HYDROmorphone INJ 1 MG/ML SYRINGE IV PRN (12:59)
[2021-05-03] MEDS ORDERED: fentaNYL citrate 100 MCG/2 ML VIAL IV PRN (12:59)
[2021-05-03] MEDS ORDERED: PHENYLEPHRINE 100MCG/ML 5ML SYR IV PRN (12:59)
[2021-05-03] MEDS ORDERED: ONDANSETRON INJ 2 MG/ML 2 ML VIAL IV PRN ×3 (12:59→16:19)
[2021-05-03] MEDS ORDERED: LABETALOL HCL IV 5 MG/ML 20ML IV PRN (12:59)
[2021-05-03] MEDS ORDERED: ATROPINE SULFATE 0.1 MG/ML 10ML SYR IV PRN (12:59)
[2021-05-03] MEDS ORDERED: ePHEDrine sulfate 50 MG/ML AMP IV PRN (12:59)
--- NOTE | 2021-05-03 13:00 | Anesthesiology Progress Note ---
Date of Service May 03, 2021 Anesthesia Post Procedure Vital Signs Vital Signs: Temp Pulse Pulse Pulse Resp BP BP 05/03/21 12:55 60 21 110/45 L 05/03/21 12:45 48 L 14 116/59 L 05/03/21 12:36 36.2 C L 62 18 138/70 05/03/21 10:30 36.4 C L 72 18 145/83 H 05/03/21 10:17 68 17 135/74 05/03/21 08:57 66 17 141/82 H 05/03/21 07:03 62 16 125/68 05/02/21 21:18 36.2 C L 83 18 159/91 H Pulse Ox 05/03/21 12:55 100 05/03/21 12:45 100 05/03/21 12:36 100 05/03/21 10:30 100 05/03/21 10:17 100 05/03/21 08:57 99 05/03/21 07:03 98 05/02/21 21:18 95 Transfer of Care Handoff Completed per policy Notes Mental Status: alert / awake / arousable Patient Amnestic to Procedure: Yes Nausea / Vomiting: adequately controlled Pain: adequately controlled Airway Patency, RR, SpO2: stable & adequate BP & HR: stable & adequate Hydration State: stable & adequate Anesthetic Complications: no major complications apparent and Pt Satisfied with anesthetic care
--- NOTE | 2021-05-03 13:32 | Operative Report (OR) ---
DATE OF OPERATION: 05/03/2021 NAME OF OPERATION: Laparoscopic cholecystectomy. PREOPERATIVE DIAGNOSIS: Acute cholecystitis. POSTOPERATIVE DIAGNOSIS: Acute cholecystitis. STAFF SURGEON: Felice Tony MD. FLAT DRIER: Rosales Strickland PA-C. ANESTHESIA: General. DESCRIPTION OF PROCEDURE: The patient was brought in the operating room and placed on the operating table in supine position. My surgical assistant helped with prepping, draping, removal of the gallbladder and closure of the wounds. Her abdomen was prepped and draped in the usual fashion. Pneumatic stocking s and orogastric tube were placed. 0.5% plain Marcaine was used to anesthetize all incisions. Incis ion was made above the umbilicus, carrying dissection down to the fascia, placing a Veress needle pro ducing pneumoperitoneum, placing an 11 mm port. Under visualization, three 5 mm ports were placed, o ne cephalad and two laterally. Gallbladder was grasped and retracted. It was severely distended and edematous consistent with acute cholecystitis. Attempted aspiration of the bile was performed showing sludge. Dissection was trista ed out to the [place] hepatis, identifying the cystic duct and cystic artery. These were clipped and t ransected and the gallbladder dissected away from the liver bed. There was severe edema in the poste rior wall. Gallbladder was placed in an Endobag. After appropriate hemostasis and irrigation, the E ndobag was removed through the umbilical site. I did have to enlarge the fascial defect and skin bec ause of the size of the gallbladder and stones. Fascia at the umbilicus closed using 0 PDS suture. The skin was reapproximated using subcuticular 4-0 Monocryl with Dermabond. The patient was transfer red to recovery room in stable condition. Job ID: [id number]
[2021-05-03] MEDS ORDERED: traMADol HCL 50 MG TABLET PO STA (14:54)
[2021-05-03] MEDS ORDERED: traMADol HCL 50 MG TABLET ONE (14:56)
[2021-05-03] MEDS ORDERED: CHECK SCOPOLAMINE PATCH PLACEMENT SCH (16:00)
[2021-05-03] MEDS ORDERED: LEVOTHYROXINE SODIUM 50 MCG TABLET PO SCH (16:19)
[2021-05-03] MEDS ORDERED: traMADol HCL 50 MG TABLET PO PRN (16:19)
[2021-05-03] MEDS ORDERED: MoRPHine SULFATE 4 MG/ML 1 ML CARP\\VIAL IV PRN (16:19)
[2021-05-03] MEDS ORDERED: SODIUM CHLORIDE 0.9% 1000ML 1,000 ML IV SCH (16:19)
[2021-05-03] MEDS ORDERED: ACETAMINOPHEN 1,000 MG/100 ML VIAL IV PRN (16:19)
[2021-05-03] MEDS ORDERED: ALBUTEROL HFA 8 GM INHALER INH PRN (16:19)
[2021-05-03] MEDS ORDERED: PROMETHAZINE HCL 12.5 MG in SODIUM CHLORIDE 0.9% 50 ML IV PRN (16:19)
[2021-05-03] MEDS ORDERED: metroNIDAZOLE 500 MG/100 ML BAG IV SCH (17:00)
[2021-05-03] MEDS ORDERED: CIPROFLOXACIN / D5W 400 MG/200 ML BAG IV SCH (18:00)
[2021-05-03] MEDS ORDERED: IBUPROFEN 600 MG TAB PO SCH (18:45)
--- NOTE | 2021-05-06 20:19 | Discharge Summary ---
Date of Service May 06, 2021 Admission HPI Per Admitting Provider This 55-year-old female who developed right upper quadrant epigastric abdominal pain yesterday. She says that the pain occurred shortly after eating dinner. She says she has never experienced pain like this before. With the pain she had nausea vomiting along with some chills but denies any fevers. She notes that the pain did not radiate. She did not note any palliative or provocative factors. Because of the nature of the pain she presented to the emergency department where the pain abated shortly thereafter. She does note she has had prior abdominal surgeries as she has had a hysterectomy. In the emergency department the patient had labs and imaging which I independently reviewed. A CT scan of the abdomen pelvis showed the patient had gallbladder wall thickening with gallstones. Patient was also noted to have a 6 mm right lower lobe nodule on the study. A gallbladder ultrasound also showed multiple gallstones with a distended gallbladder and gallbladder wall thickening with the wall measuring 3 to 5 mm and small amount of pericholecystic fluid. Common bile duct was not dilated. Labs included Mr. Profile where patient's sodium, potassium, BUN, and creatinine were all within normal range. Her bilirubin, transaminases, alkaline phosphatase and lipase were all nonelevated. Urinalysis was not indicative of infection. An EKG showed normal sinus rhythm without any acute ischemic changes. CBC showed white blood cell count, hemoglobin, hematocrit, and platelet count were all within normal range. The patient leads a very active lifestyle hiking several miles multiple times per week and also riding her bike up to 30 miles multiple times per week. With her activities such as this she does not get any chest pain or shortness of breath. At the time of my interview she was resting comfortably in bed in no distress. Discharge Data Consultations 05/03/21 05:39 ED Decision to Admit Stat 05/03/21 06:16 Consult Hospitalist Stat Procedures Performed Operation Date: 05/03/21 08:20 Actual Procedures p Laparoscopic Cholecystectomy(Not Applicable) - Felice Tony MD, FACS Hospital Course (1) Acute cholecystitis: This patient presented to [facility] emergency department secondary to right upper quadrant abdominal pain. In the emergency department patient had labs and imaging consistent with acute cholecystitis. Because of this patient was admitted to the general surgery service and on date of admission Dr. Tony performed a laparoscopic cholecystectomy without complication. Patient was deemed stable for discharge the day of her surgery. She was instructed on appropriate wound care, diet, and activity. She was told to call Dr. Tony's office for a 1 to 2-week follow-up appointment. Coding Level of Care Code None Diagnoses Acute cholecystitis K81.0
== END 2021-05-03 19:14 | disposition home or self-care (01) ==
LOC: ED 21:08 → EDINP 21:08 → 3N 05-03 16:37